=== PATIENT | male | born 1965 | race Caucasian/White ===

== ENCOUNTER 2016-09-13 15:46 | Emergency (ER) | payer BC ==
--- NOTE | ~2016-09-13 | US85 ---
[facility] A Service of [facility] RADIOLOGY TEXT RESULTS PATIENT: DANISHA BEYER LOCATION: [place] : 61 UNIT #: [id number] AGE: [address]: Dhruv Balderas SEX: M ORDER DR: [id number] [facility] [address] [place], [place] [address] [id number] MR#: [id number] #: [id number] NAME: DANISHA BEYER : 1965 SEX: M STUDY DATE/TIME: 09/13/2016 16:33 UNIT: [id number] ROOM: STUDY DESCRIPTION: [facility] [place] [employer] Attending Physician: Dhruv Balderas Ordering Physician: (Res) Dhruv Balderas Primary Care Physician: No Primary Care Physician MEDICAL IMAGING REPORT This report is preliminary unless electronic signature is present EXAM Unilateral left lower extremity venous Doppler. DATE OF STUDY 09/13/2016 PROCEDURE Clark-scale imaging, color-Doppler flow imaging and Doppler waveform analysis. HISTORY Left leg swelling for 2 weeks. FINDINGS There is occlusive thrombus in the superficial femoral vein. The common and deep femoral vein, popliteal vein and below-knee anterior and posterior tibial and peroneal veins are normal and the superficial saphenous veins are normal as well. IMPRESSION Positive for occlusive thrombus in the superficial femoral vein. Otherwise, negative unilateral left lower extremity venous Doppler. Dictated by... Eduard Villalba M.D. THIS IS AN ELECTRONICALLY VERIFIED REPORT Eduard Villalba M.D. at 09/14/2016 9:38 AM TEV/jedd TD: 09/13/2016 21:15 [facility] A Service [facility] RADIOLOGY TEXT RESULTS PATIENT: DANISHA BEYER LOCATION: [place] : 61 UNIT #: [id number] AGE: [address]: Dhruv Balderas SEX: M ORDER DR: KIM #: [id number] MEDICAL IMAGING REPORT Page 1 of 1 COPY
== END 2016-09-13 18:20 | disposition home or self-care (01) ==
LOC: CFTX 15:46
DX: I82.412 Acute embolism and thrombosis of left femoral vein (principal); R03.0 Elevated blood-pressure reading, without diagnosis of hypertension; F17.210 Nicotine dependence, cigarettes, uncomplicated
CPT/HCPCS: 93971; 99284